=== PATIENT | female | born 1970 | race Asian ===

== ENCOUNTER 2025-08-02 13:08 | Emergency (ER) | payer BC ==
[~2025-08-02] VITALS: Ht 162.6 cm; Wt 45.0 kg
[2025-08-02 13:17] VITALS: O2SAT 99
[2025-08-02 13:19] VITALS: BP 124/80; PULSE 86; RESP 14; TEMP 36.9; O2SAT 100
[2025-08-02] MEDS: LIDOCAINE HCL 1% 20ML VIAL INFIL ONE (14:45)
[2025-08-02] MEDS: CEFAZOLIN 1000MG PREMIX 50 ML IV ONE (16:28)
[2025-08-02] MEDS ORDERED: BACITRACIN ZINC OINT UDPKT TOP ONE (16:30)
[2025-08-02] MEDS ORDERED: HYDR-4001 MT (17:37)
[2025-08-02] MEDS ORDERED: CEPH500C2 MT (17:37)
[2025-08-02] MEDS ORDERED: NAPR-681 MT (17:37)
== END 2025-08-02 18:29 | disposition home or self-care (01) ==
LOC: ER 13:08
DX: S62.660B Nondisplaced fracture of distal phalanx of right index finger, initial encounter for open fracture (principal); S61.210A Laceration without foreign body of right index finger without damage to nail, initial encounter; S67.190A Crushing injury of right index finger, initial encounter; W23.0XXA Caught, crushed, jammed, or pinched between moving objects, initial encounter; Y93.89 Activity, other specified; Y92.89 Other specified places as the place of occurrence of the external cause; Y99.8 Other external cause status
CPT/HCPCS: 73140; 12002; 96365; 99284; J0690; J2003; Z7610